=== PATIENT | male | born 1975 | race Caucasian/White ===

== ENCOUNTER 2017-04-14 20:17 | Emergency (ER) | payer SELFPAY ==
[~2017-04-14] VITALS: Ht 170.2 cm; Wt 86.2 kg
[~2017-04-14 20:17] MED LIST: ADVAIR; ALBU.083IS IH; ALBU90I INH; AMIT25 PO; AMOX500 PO; ASPI325; ATENOLOL PO; AZIT250 PO; Bactrim Ds Tab1 EACH PO; CEFU250; CEPH500 PO; CLIN300 PO; CODACE30 PO; CRUTCH2 XX; CYCL10; CYCL10 PO; DIAZ5 PO; DIPH50 PO; DIVA500EC PO; Esgic Tablet1 EACH PO; FLUSAL1005; FLUT220OIA IH; HYDACE25S PR; HYDACE5; HYDACE5 PO; IBUP400 PO; IBUP600 PO; IBUP800 PO; Keflex500 MG PO; METPRE4DP PO; MOMENI; MUPI2TO TOP; NAPR500; NAPR500 PO; NAPR500EC; NAPROSYN; NEOPOLHYDS RIGHTEAR; NORT10 PO; Naprosyn500 MG PO; Norco 5-325 Ta1 EACH PO; OXYACE5T PO; OXYC10ER; PENVK500 PO; PRED10 PO; PRED20 PO; PROCODE120 PO; Percocet 5-3251 EACH PO; RANI150 PO; RXCLIN PO; RXOXYACE PO; RXPROCODSY PO; Roxicodone5 MG PO; SERT25 PO; TIOT18 IH; TRAM50 PO; Ultram50 MG PO; VALD10; Veetids 500500 MG PO; [UNRECOGNIZED DRUG - REMARK]; [UNRECOGNIZED DRUG - REMARK]; [UNRECOGNIZED DRUG - REMARK]
[2017-04-14 21:06] LABS: BASOPHILS ABSOLUTE AUTO 0.04 K/mm3 (0.00-0.23); BASOPHILS PERCENT AUTO 0 % (0-2); EOSINOPHILS ABSOLUTE AUTO 0.22 K/mm3 (0.00-0.68); EOSINOPHILS PERCENT AUTO 2 % (0-6); Hematocrit 48.4 % (37.0-53.0); Hemoglobin 16.1 g/dL (13.5-17.5); IMMATURE GRAN ABSOLUTE AUTO 0.04 K/mm3 (0.00-0.10); IMMATURE GRAN PERCENT AUTO 0 % (0-1); LYMPHOCYTES ABSOLUTE AUTO 1.29 K/mm3 (0.84-5.20); LYMPHOCYTES PERCENT AUTO 11 % (21-46); MONOCYTES ABSOLUTE AUTO 1.06 K/mm3 (0.16-1.47); MONOCYTES PERCENT AUTO 9 % (4-13); Mean Corpuscular HGB 29.9 pg (26.0-34.0); Mean Corpuscular HGB Conc 33.3 g/dL (31.5-36.5); Mean Corpuscular Volume 90 fL (80-100); Mean Platelet Volume 10.1 fL (9.1-12.4); NEUTROPHILS ABSOLUTE AUTO 9.28 K/mm3 (1.96-9.15); NEUTROPHILS PERCENT AUTO 78 % (41-73); Platelet Count 283 K/mm3 (150-400); RDW Standard Deviation 42.5 fL (35.1-46.3); Red Blood Cell Count 5.39 M/mm3 (4.30-5.90); White Blood Cell Count 11.93 K/mm3 (4.00-11.30)
[2017-04-14 21:24] LABS: Alanine Aminotransfer (ALT/SGP 26 U/L (12-78); Albumin, Blood 4.1 g/dL (3.4-5.0); Albumin/Globulin Ratio 1.1 (0.8-1.8); Alk Phos 86 U/L (50-136); Anion Gap 9 mmol/L (6-16); Aspartate Aminotrans (AST/SGOT 18 U/L (12-37); Bilirubin, Total 0.3 mg/dL (0.1-1.0); Blood Urea Nitrogen 21 mg/dL (8-24); Bun/Creatinine Ratio 15.6 (12.0-20.0); CO2, Blood 25 mmol/L (21-32); Calcium, Blood 9.3 mg/dL (8.5-10.1); Chloride, Blood 105 mmol/L (98-108); Creatinine, Blood 1.35 mg/dL (0.60-1.20); Globulin, Blood 3.9 g/dL (2.2-4.0); Glomerular Filtration Rate >60 (60-); Glucose, Blood 97 mg/dL (70-99); Potassium, Blood 4.2 mmol/L (3.5-5.5); Sodium, Blood 139 mmol/L (136-145)
[2017-04-15] MEDS ORDERED: Protonix40 MG PO (00:02)
[2017-04-15] MEDS ORDERED: HYOS.125 SL (00:02)
[2017-04-15] MEDS ORDERED: Zofran Odt4 MG PO (00:02)
== END 2017-04-15 00:40 | disposition home or self-care (01) ==
LOC: ER 20:17
PROVIDERS: Emergency Medicine
DX: R10.13 Epigastric pain (principal); Z88.8 Allergy status to other drugs, medicaments and biological substances; Z88.5 Allergy status to narcotic agent; Z91.013 Allergy to seafood; J45.909 Unspecified asthma, uncomplicated; G43.909 Migraine, unspecified, not intractable, without status migrainosus; F17.200 Nicotine dependence, unspecified, uncomplicated
CPT/HCPCS: 36415; 80053; 83690; 85025; 93005; 93010; 99283

== ENCOUNTER 2018-12-14 08:18 | Emergency (ER) | payer SELFPAY ==
[~2018-12-14] VITALS: Ht 170.2 cm; Wt 86.2 kg
[~2018-12-14 08:18] MED LIST changes: +HYOS.125 SL; +Protonix40 MG PO; +Zofran Odt4 MG PO
[2018-12-14] MEDS ORDERED: HYDR1TAB94 PO (08:54)
[2018-12-14] MEDS ORDERED: IBUP800 PO (08:54)
[2018-12-14] MEDS ORDERED: CLIN300 PO (08:54)
[2018-12-14] MEDS ORDERED: Veetids 500500 MG PO (10:12)
== END 2018-12-14 10:53 | disposition home or self-care (01) ==
LOC: ER 08:18
DX: K02.9 Dental caries, unspecified (principal); F17.200 Nicotine dependence, unspecified, uncomplicated; Z88.8 Allergy status to other drugs, medicaments and biological substances; Z88.5 Allergy status to narcotic agent; Z91.013 Allergy to seafood
CPT/HCPCS: 99282

== ENCOUNTER 2019-12-12 04:49 | Emergency (ER) | payer SELFPAY ==
[~2019-12-12] VITALS: Ht 175.3 cm; Wt 89.8 kg
[~2019-12-12 04:49] MED LIST changes: +HYDR1TAB94 PO
[2019-12-12] MEDS ORDERED: IBUP400 PO (06:19)
== END 2019-12-12 06:34 | disposition left against medical advice (07) ==
LOC: ER 04:49
DX: M25.461 Effusion, right knee (principal); Z88.5 Allergy status to narcotic agent; Z91.013 Allergy to seafood; Z88.8 Allergy status to other drugs, medicaments and biological substances; J45.909 Unspecified asthma, uncomplicated; F32.9 Major depressive disorder, single episode, unspecified; F17.200 Nicotine dependence, unspecified, uncomplicated
CPT/HCPCS: 99283

== ENCOUNTER 2020-09-07 10:02 | Emergency (ER) | payer SELFPAY ==
[~2020-09-07] VITALS: Ht 170.2 cm; Wt 90.7 kg
[2020-09-07] MEDS ORDERED: LIDO700A20 TOP (11:34)
[2020-09-07] MEDS ORDERED: NEURONTIN300 MG PO (11:37)
== END 2020-09-07 11:37 | disposition home or self-care (01) ==
LOC: ER 10:02
DX: M54.5 Low back pain (principal); G89.29 Other chronic pain; R26.9 Unspecified abnormalities of gait and mobility; F17.200 Nicotine dependence, unspecified, uncomplicated; Z91.013 Allergy to seafood; Z88.8 Allergy status to other drugs, medicaments and biological substances; Z88.5 Allergy status to narcotic agent; Z88.4 Allergy status to anesthetic agent
CPT/HCPCS: 99283

== ENCOUNTER 2021-01-28 21:04 | Emergency (ER) | payer MEDICARE, OTHER ==
[~2021-01-28] VITALS: Ht 170.2 cm; Wt 90.7 kg
[~2021-01-28 21:04] MED LIST changes: +LIDO700A20 TOP; +NEURONTIN300 MG PO
[2021-01-28] MEDS ORDERED: OXYC5 PO (21:31)
[2021-01-28] MEDS ORDERED: Acetaminophen325 M1 PO (21:31)
[2021-01-28 21:40] LABS: BASOPHILS ABSOLUTE AUTO 0.06 K/mm3 (0.00-0.23); BASOPHILS PERCENT AUTO 1 % (0-2); EOSINOPHILS ABSOLUTE AUTO 0.24 K/mm3 (0.00-0.68); EOSINOPHILS PERCENT AUTO 2 % (0-6); Hematocrit 43.3 % (37.0-53.0); Hemoglobin 14.4 g/dL (13.5-17.5); IMMATURE GRAN ABSOLUTE AUTO 0.03 K/mm3 (0.00-0.10); IMMATURE GRAN PERCENT AUTO 0 % (0-1); LYMPHOCYTES ABSOLUTE AUTO 1.53 K/mm3 (0.84-5.20); LYMPHOCYTES PERCENT AUTO 14 % (21-46); MONOCYTES PERCENT AUTO 7 % (4-13); Mean Corpuscular HGB 29.9 pg (26.0-34.0); Mean Corpuscular HGB Conc 33.3 g/dL (31.5-36.5); Mean Corpuscular Volume 90 fL (80-100); Mean Platelet Volume 9.8 fL (9.1-12.4); NEUTROPHILS ABSOLUTE AUTO 8.23 K/mm3 (1.96-9.15); NEUTROPHILS PERCENT AUTO 76 % (41-73); Platelet Count 348 K/mm3 (150-400); RDW Coefficient Variation 12.7 % (11.7-14.2); RDW Standard Deviation 41.9 fL (35.1-46.3); Red Blood Cell Count 4.81 M/mm3 (4.30-5.90); White Blood Cell Count 10.79 K/mm3 (4.00-11.30)
[2021-01-28 21:58] LABS: Alanine Aminotransfer (ALT/SGP 72 U/L (12-78); Albumin, Blood 3.4 g/dL (3.4-5.0); Albumin/Globulin Ratio 0.7 (0.8-1.8); Alk Phos 124 U/L (50-136); Anion Gap 6 mmol/L (6-16); Aspartate Aminotrans (AST/SGOT 43 U/L (12-37); Bilirubin, Total 0.2 mg/dL (0.1-1.0); Blood Urea Nitrogen 21 mg/dL (8-24); Bun/Creatinine Ratio 21.9 (12.0-20.0); CO2, Blood 29 mmol/L (21-32); Calcium, Blood 9.5 mg/dL (8.5-10.1); Chloride, Blood 101 mmol/L (98-108); Creatinine, Blood 0.96 mg/dL (0.60-1.20); Globulin, Blood 4.7 g/dL (2.2-4.0); Glomerular Filtration Rate >60 (60-); Glucose, Blood 109 mg/dL (70-99); Potassium, Blood 4.3 mmol/L (3.5-5.5); Sodium, Blood 136 mmol/L (136-145); Total Protein, Blood 8.1 g/dL (6.4-8.2)
== END 2021-01-28 22:09 | disposition home or self-care (01) ==
LOC: ER 21:04
PROVIDERS: Physician Assistant
DX: G89.18 Other acute postprocedural pain (principal); M54.50 Low back pain, unspecified; J45.909 Unspecified asthma, uncomplicated; G43.909 Migraine, unspecified, not intractable, without status migrainosus; F32.9 Major depressive disorder, single episode, unspecified; F17.200 Nicotine dependence, unspecified, uncomplicated; Z91.013 Allergy to seafood; Z88.5 Allergy status to narcotic agent; Z88.8 Allergy status to other drugs, medicaments and biological substances; Z88.6 Allergy status to analgesic agent; Z79.899 Other long term (current) drug therapy
CPT/HCPCS: 36415; 80053; 85025; 99283; A9270

== ENCOUNTER 2021-02-25 13:06 | Emergency (ER) | payer MEDICARE, OTHER ==
[~2021-02-25] VITALS: Ht 170.2 cm; Wt 89.8 kg
[~2021-02-25 13:06] MED LIST changes: +Acetaminophen325 M1 PO; +OXYC5 PO
[2021-02-25] MEDS ORDERED: Veetids 500500 MG PO (13:43)
== END 2021-02-25 14:02 | disposition home or self-care (01) ==
LOC: ER 13:06
DX: K02.9 Dental caries, unspecified (principal); J45.909 Unspecified asthma, uncomplicated; G43.909 Migraine, unspecified, not intractable, without status migrainosus; F17.200 Nicotine dependence, unspecified, uncomplicated; Z88.8 Allergy status to other drugs, medicaments and biological substances; Z88.5 Allergy status to narcotic agent; Z91.013 Allergy to seafood
CPT/HCPCS: 99282

== ENCOUNTER 2021-10-17 12:27 | Emergency (ER) | payer MEDICARE, OTHER ==
[~2021-10-17] VITALS: Ht 170.2 cm; Wt 90.7 kg
[2021-10-17] MEDS ORDERED: Ciprofloxacin2.5 ML LEFTEYE (13:56)
== END 2021-10-17 14:13 | disposition home or self-care (01) ==
LOC: ER 12:27
DX: H57.12 Ocular pain, left eye (principal); H10.9 Unspecified conjunctivitis; F17.210 Nicotine dependence, cigarettes, uncomplicated
CPT/HCPCS: A9270

== ENCOUNTER 2021-12-25 12:56 | Emergency (ER) | payer MEDICARE, OTHER ==
[~2021-12-25] VITALS: Ht 170.2 cm; Wt 81.7 kg
[~2021-12-25 12:56] MED LIST changes: +Ciprofloxacin2.5 ML LEFTEYE
== END 2021-12-25 14:53 | disposition home or self-care (01) ==
LOC: ER 12:56
DX: M54.42 Lumbago with sciatica, left side (principal); J45.909 Unspecified asthma, uncomplicated; F17.210 Nicotine dependence, cigarettes, uncomplicated; Z88.5 Allergy status to narcotic agent; Z88.8 Allergy status to other drugs, medicaments and biological substances; Z91.013 Allergy to seafood
CPT/HCPCS: 73502; J1885; J7512

== ENCOUNTER 2022-05-05 11:14 | Emergency (ER) | payer MEDICARE, OTHER ==
[~2022-05-05] VITALS: Ht 170.2 cm; Wt 92.1 kg
[2022-05-05] MEDS ORDERED: SYMBICORT 80-10.2 GM INH (14:33)
== END 2022-05-05 15:42 | disposition home or self-care (01) ==
LOC: ER 11:14
DX: R10.9 Unspecified abdominal pain (principal); J44.9 Chronic obstructive pulmonary disease, unspecified; F17.200 Nicotine dependence, unspecified, uncomplicated; Z88.5 Allergy status to narcotic agent; Z91.013 Allergy to seafood; Z88.8 Allergy status to other drugs, medicaments and biological substances; Z79.51 Long term (current) use of inhaled steroids
CPT/HCPCS: 36415; 76857; 82947; 93005; 93010; 96374; 99284-25; J3010

== ENCOUNTER 2022-05-17 13:06 | Day surgery (SDC) | payer MEDICARE, OTHER ==
[~2022-05-17 13:06] MED LIST changes: +SYMBICORT 80-10.2 GM INH
--- NOTE | 2022-05-17 17:23 | NUR ---
Ambulatory in Day Surgery History, Chart, Medications and Allergies reviewed before start of procedure.Pre-Op teaching done. Pt verbalizes understanding. Patient States Post-Procedure ride home has been arranged.
--- NOTE | 2022-05-17 19:13 | NUR ---
PT TO STEP DOWN, TOLERATING PUDDING AND JUICE. ORAL PAIN MEDS PROVIDED. [employer]SITE OVER ABDOMEN DRY AND INTACT.PT SLEEPY, PLEASANT, AND COOPERATIVE. S/O AT SIDE, BELONGINGS RETURNED. VSS, 129/85,96,93%,16. WILL PLAN TO D/C HOME.
--- NOTE | 2022-05-17 19:25 | NUR ---
LATE ENTRY:PT IV D/C PRIO TO DISCHARGE, CATH INTACT, WNL, 2X2 AND COBAN PLACED.
== END 2022-05-17 22:39 | disposition home or self-care (01) ==
LOC: ORSCMMR 13:06 → ORD 15:30 → ORSCMMR 15:30 → ORD 15:45 → ORSCMMR 22:39
PROVIDERS: Surgery
PROC: 0WQF0ZZ Repair Abdominal Wall, Open Approach (ICD-10-PCS; principal; 2022-05-17 17:00)
DX: K42.0 Umbilical hernia with obstruction, without gangrene (principal); J44.9 Chronic obstructive pulmonary disease, unspecified; E11.9 Type 2 diabetes mellitus without complications; I67.1 Cerebral aneurysm, nonruptured; R56.9 Unspecified convulsions; F32.A Depression, unspecified; F17.210 Nicotine dependence, cigarettes, uncomplicated; Z79.899 Other long term (current) drug therapy
CPT/HCPCS: 82947; A9270; J0690; J1100; J1885; J2250; J2405; J2704; J2765; J3010; J7120

== ENCOUNTER 2023-03-14 10:59 | Emergency (ER) | payer MEDICARE ==
[~2023-03-14] VITALS: Ht 170.2 cm; Wt 90.7 kg
[2023-03-14 11:47] LABS: BASOPHILS ABSOLUTE AUTO 0.05 K/mm3 (0.00-0.23); BASOPHILS PERCENT AUTO 1 % (0-2); EOSINOPHILS ABSOLUTE AUTO 0.25 K/mm3 (0.00-0.68); EOSINOPHILS PERCENT AUTO 3 % (0-6); Hematocrit 44.2 % (37.0-53.0); Hemoglobin 14.9 g/dL (13.5-17.5); IMMATURE GRAN ABSOLUTE AUTO 0.02 K/mm3 (0.00-0.10); IMMATURE GRAN PERCENT AUTO 0 % (0-1); LYMPHOCYTES ABSOLUTE AUTO 1.88 K/mm3 (0.84-5.20); LYMPHOCYTES PERCENT AUTO 21 % (21-46); MONOCYTES PERCENT AUTO 6 % (4-13); Mean Corpuscular HGB 29.4 pg (26.0-34.0); Mean Corpuscular HGB Conc 33.7 g/dL (31.5-36.5); Mean Corpuscular Volume 87 fL (80-100); NEUTROPHILS ABSOLUTE AUTO 6.12 K/mm3 (1.96-9.15); NEUTROPHILS PERCENT AUTO 69 % (41-73); Platelet Count 302 K/mm3 (150-400); RDW Coefficient Variation 12.7 % (11.7-14.2); RDW Standard Deviation 40.8 fL (35.1-46.3); Red Blood Cell Count 5.06 M/mm3 (4.30-5.90); White Blood Cell Count 8.82 K/mm3 (4.00-11.30)
[2023-03-14 12:19] LABS: Albumin, Blood 3.7 g/dL (3.4-5.0); Albumin/Globulin Ratio 1.1 (0.8-1.8); Bilirubin, Total 0.3 mg/dL (0.1-1.0); Bun/Creatinine Ratio 17.4 (12.0-20.0); Calcium, Blood 8.8 mg/dL (8.5-10.1); Creatinine, Blood 0.98 mg/dL (0.60-1.20); Globulin, Blood 3.4 g/dL (2.2-4.0); Potassium, Blood 3.9 mmol/L (3.5-5.5); Total Protein, Blood 7.1 g/dL (6.4-8.2)
[2023-03-14 12:55] LABS: Source, Urine Clean Catch
[2023-03-14 12:58] LABS: Appearance, Urine Cloudy (Clear); Bilirubin, Urine Neg (Neg); Blood, Urine 5+ (Neg); Color, Urine Yellow (P-Yellow); Glucose Qualitative, Urine Neg (Neg); Ketones, Urine Neg (Neg); Leukocyte Esterase, Urine 1+ (Neg); Nitrite, Urine Neg (Neg); Protein, Urine 2+ (Neg); Specific Gravity, Urine 1.015 (1.003-1.022); Urobilinogen, Urine NORM (Normal); pH, Urine 6.5 (5.0-8.0)
[2023-03-14 13:06] LABS: Bacteria Rare /hpf; Red Blood Cells, Urine 50-100 /hpf (0-2); Squamous Epithelial Cells Not Seen /hpf (Few)
[2023-03-14 13:07] LABS: Yeast/Fungi Urine Rare /hpf
[2023-03-14] MEDS ORDERED: HYDR1TAB94 PO (13:20)
[2023-03-14 13:30] VITALS: BP 160/97
== END 2023-03-14 13:45 | disposition home or self-care (01) ==
LOC: ER 10:59
PROVIDERS: Emergency Medicine
DX: N13.2 Hydronephrosis with renal and ureteral calculous obstruction (principal); R59.0 Localized enlarged lymph nodes; J44.9 Chronic obstructive pulmonary disease, unspecified; F17.210 Nicotine dependence, cigarettes, uncomplicated; Z88.8 Allergy status to other drugs, medicaments and biological substances; Z88.5 Allergy status to narcotic agent; Z91.013 Allergy to seafood; Z79.51 Long term (current) use of inhaled steroids
CPT/HCPCS: 74177; 80053; 81001; 85025; 87086; 96374; 96375; 99285-25; J1170; J1885; Q9967

== ENCOUNTER 2024-11-26 16:29 | Emergency (ER) | payer MEDICARE ==
[~2024-11-26] VITALS: Ht 170.2 cm; Wt 79.4 kg
[2024-11-26 16:59] LABS: BASOPHILS ABSOLUTE AUTO 0.04 K/mm3 (0.00-0.23); BASOPHILS PERCENT AUTO 1 % (0-2); EOSINOPHILS ABSOLUTE AUTO 0.07 K/mm3 (0.00-0.68); EOSINOPHILS PERCENT AUTO 1 % (0-6); Hematocrit 45.0 % (37.0-53.0); Hemoglobin 15.1 g/dL (13.5-17.5); IMMATURE GRAN ABSOLUTE AUTO 0.02 K/mm3 (0.00-0.10); IMMATURE GRAN PERCENT AUTO 0 % (0-1); LYMPHOCYTES ABSOLUTE AUTO 1.37 K/mm3 (0.84-5.20); LYMPHOCYTES PERCENT AUTO 19 % (21-46); MONOCYTES ABSOLUTE AUTO 0.43 K/mm3 (0.16-1.47); MONOCYTES PERCENT AUTO 6 % (4-13); Mean Corpuscular HGB Conc 33.6 g/dL (31.5-36.5); Mean Corpuscular Volume 88 fL (80-100); NEUTROPHILS ABSOLUTE AUTO 5.33 K/mm3 (1.96-9.15); NEUTROPHILS PERCENT AUTO 73 % (41-73); NRBC ABSOLUTE 0.00 K/mm3 (0.00-0.02); NRBC Auto 0.0 /100 WBC (0.0-0.2); Platelet Count 274 K/mm3 (150-400); RDW Coefficient Variation 12.6 % (11.7-14.2); RDW Standard Deviation 40.4 fL (35.1-46.3)
[2024-11-26 17:20] LABS: Alanine Aminotransfer (ALT/SGP 22.0 U/L (12-78); Albumin, Blood 4.2 g/dL (3.4-5.0); Albumin/Globulin Ratio 1.2 (0.8-1.8); Anion Gap 8.0 mmol/L (3-11); Aspartate Aminotrans (AST/SGOT 20.0 U/L (12-37); Bilirubin, Total 0.4 mg/dL (0.1-1.0); Blood Urea Nitrogen 17.0 mg/dL (8-24); CO2, Blood 26.0 mmol/L (21-32); Calcium, Blood 9.2 mg/dL (8.5-10.1); Chloride, Blood 106.0 mmol/L (98-108); Creatinine, Blood 0.93 mg/dL (0.60-1.20); Globulin, Blood 3.5 g/dL (2.2-4.0); Glucose, Blood 110.0 mg/dL (70-99); Potassium, Blood 4.0 mmol/L (3.5-5.5); Sodium, Blood 136.0 mmol/L (136-145); Total Protein, Blood 7.7 g/dL (6.4-8.2)
[2024-11-26 17:34] LABS: Influenza A, PCR NEGATIVE (NEGATIVE); Influenza B, PCR NEGATIVE (NEGATIVE); Resp Syncytial Virus, PCR NEGATIVE (NEGATIVE); SARS-Cov-2 (COVID-19) PCR, MMC NEGATIVE (NEGATIVE)
[2024-11-26] MEDS ORDERED: Ondansetron HCl 2 MG / ML 2ML Vial IV ONE (21:05)
[2024-11-26] MEDS ORDERED: NS 1,000 ML IV SCH (21:05)
[2024-11-26] MEDS ORDERED: Ipratropium/Albuterol SulF 2.5-0.5MG/3 ML Amp INH ONE (21:10)
[2024-11-26 21:25] LABS: Magnesium, Blood 2.4 mg/dL (1.6-2.4); Phosphorus, Blood 4.1 mg/dL (2.5-4.9)
[2024-11-26 22:00] VITALS: BP 140/80
== END 2024-11-26 23:48 | disposition home or self-care (01) ==
LOC: ER 16:29
PROVIDERS: Emergency Medicine; Student in an Organized Health Care Education/Training Program
DX: J44.1 Chronic obstructive pulmonary disease with (acute) exacerbation (principal); G43.909 Migraine, unspecified, not intractable, without status migrainosus; F17.210 Nicotine dependence, cigarettes, uncomplicated; Z79.51 Long term (current) use of inhaled steroids; Z88.5 Allergy status to narcotic agent; Z91.013 Allergy to seafood; Z88.8 Allergy status to other drugs, medicaments and biological substances
CPT/HCPCS: 71046; 80053; 83690; 83735; 84100; 84484; 85025; 87637; 93005; 93010; 96374; 99285-25; J2405; J7030